=== PATIENT | female | born 1975 | race Caucasian/White ===

== ENCOUNTER → 2019-01-22 | Outpatient (CLI) | payer MEDICAID ==
--- NOTE | 2019-01-28 11:10 | WOMENS IMAGING REPORT ---
EXAM DESCRIPTION: BILAT SCREENING MAMMO W/CAD COMPLETED DATE/TIME: 01/22/2019 2:32 pm REASON FOR STUDY: Z12.31 ROUTINE BILATERAL [id number] ENCNTR SCREEN MAMMOGRAM FOR MALIGNANT NE OPLASM OF ALCON COMPARISON: 2017 outside facility. EXAM PARAMETERS: Standard craniocaudal and mediolateral oblique views of each breast recorded using digital acquisition. Read with the assistance of CAD. .[facility] - [employer] Version 9.2 LIMITATIONS: None. FINDINGS: RIGHT BREAST MASSES: No suspicious masses. CALCIFICATIONS: No new or suspicious calcifications. ARCHITECTURAL DISTORTION: None. DEVELOPING DENSITY: Developing density upper outer quadrant about 10 cm deep to the nipple. ASYMMETRY: None noted. OTHER: No other significant findings. LEFT BREAST MASSES: No suspicious masses. CALCIFICATIONS: No new or suspicious calcifications. ARCHITECTURAL DISTORTION: None. DEVELOPING DENSITY: None. ASYMMETRY: None noted. OTHER: No other significant findings. IMPRESSION: Developing density right breast. 0 Incomplete: Needs Additional Imaging Evaluation and/or prior Mammograms for Comparison. BREAST DENSITY: b. There are scattered areas of fibroglandular density. BIRAD: ASSESSMENT: 0 Incomplete: Needs Additional Imaging Evaluation and/or prior Mammograms for C omparison. RECOMMENDATION: RECOMMENDED FOLLOW-UP: True lateral cone compression views and potential ultrasound right breast. The patient will be contacted for additional imaging. COMMENT: The patient has been notified of the results by letter per MQSA requirements. Additional no tification policies are in place for contacting patient with suspicious or incomplete findings. Quality ID #225: The [employer] recommends an annual screening mammogram for women aged 40 years or over. This facility utilizes a reminder system to ensure that all patients receive reminder letters, and/or direct phone calls for appointments. This includes reminders for routine scr eening mammograms, diagnostic mammograms, or other Breast Imaging Interventions when appropriate. Th is patient will be placed in the appropriate reminder system. TECHNICAL DOCUMENTATION: FINDING NUMBER: (1) ASSESSMENT: (1) JOB ID: [id number]- All Rights Reserved Reading location - IP/workstation name: [email or web address]
== END ==
LOC: WI 14:17
PROVIDERS: ATTEND Nurse Practitioner Family
DX: Z12.31 Encounter for screening mammogram for malignant neoplasm of breast (principal)
CPT/HCPCS: 77067

== ENCOUNTER 2019-02-14 07:50 | Day surgery (SDC) | payer MEDICAID ==
[2019-02-14] MEDS ORDERED: PROPOFOL INJ 200 MG/20 ML VIAL IV ONE (07:51)
--- NOTE | 2019-02-14 11:33 | Operative Report ---
Operative Report DATE OF SURGERY: 02/14/19 Operative Report: The risks, benefits and alternatives of the procedure including the risk of bleeding, perforation requiring surgery have been explained to the patient in detail and informed consent has been obtained. Patient is taken back to the endoscopy suite and placed in a left, lateral decubital position. Timeout was called. Propofol medication is administered. Rectal examination is done which did not reveal any masses, tears or fissures. An Olympus videoscope was introduced into the patient's rectum. The scope was then carefully advanced all the way to the cecum. The cecum was identified by the usual anatomical landmarks including the ileocecal valve as well as the appendiceal office. Photodocumentation is obtained. Scope was then sequentially pulled back via the various segments of the colon including the ascending colon, hepatic flexure, transverse colon, splenic flexure, descending colon and finally into the rectosigmoid portions of the colon. Retroflexion maneuvers performed. PREOPERATIVE DIAGNOSIS: Colorectal cancer screening POSTOPERATIVE DIAGNOSIS: Mild inflammation noted on the right and side of the colon status post biopsy. Internal hemorrhoids OPERATION: Colonoscopy biopsy SURGEON: SHENA HEAD ANESTHESIA: LMAC TISSUE REMOVED OR ALTERED: As noted above. COMPLICATIONS: None. ESTIMATED BLOOD LOSS: None. INTRAOPERATIVE FINDINGS: As noted above. PROCEDURE: Patient tolerated the procedure well. No immediate postprocedure complications are noted. Patient is discharged in good condition. Discharge date 02/14/2019. Discharge diet: Regular. Discharge activity: Regular. 2 to 3-week follow-up to discuss findings. Patient is instructed to call the office or proceed to the emergency room should there be any further problems or questions. Likely can have a 10-year surveillance colonoscopy.
[2019-02-14 12:51] VITALS: BP 140/79
== END 2019-02-14 09:50 | disposition home or self-care (01) ==
LOC: END 07:50
PROVIDERS: ATTEND Internal Medicine Gastroenterology
DX: Z80.0 Family history of malignant neoplasm of digestive organs (principal); K52.9 Noninfective gastroenteritis and colitis, unspecified; K64.8 Other hemorrhoids; F17.210 Nicotine dependence, cigarettes, uncomplicated
CPT/HCPCS: 88305 ×2; 00811; J2704; 45380; 811

== ENCOUNTER 2019-06-06 06:53 | Day surgery (SDC) | payer MEDICAID ==
[2019-06-03 10:00] LABS: MEAN CORPUSCULAR HEMOGLOBIN 29.1 pg (27.0-33.4); MEAN CORPUSCULAR HGB CONC 33.3 g/dL (32.0-36.0); MEAN CORPUSCULAR VOLUME 88 fl (80-97); PLATELET COUNT 358 10^3/uL (150-450); RED BLOOD COUNT 3.43 10^6/uL (3.72-5.28); RED CELL DISTRIBUTION WIDTH 15.5 % (11.5-14.0); WHITE BLOOD COUNT 8.6 10^3/uL (4.0-10.5)
[2019-06-03 10:15] LABS: APPEARANCE,URINE SLIGHTLY-CLOUDY; BILIRUBIN,URINE NEGATIVE (NEGATIVE); COLOR,URINE YELLOW; GLUCOSE, URINE NEGATIVE (NEGATIVE); KETONES,URINE NEGATIVE (NEGATIVE); LEUKOCYTE ESTERASE,URINE NEGATIVE (NEGATIVE); NITRITE,URINE NEGATIVE (NEGATIVE); PROTEIN,URINE 30 mg/dL (NEGATIVE); URINE SPECIFIC GRAVITY 1.024; UROBILINOGEN,URINE NEGATIVE mg/dL (<2.0)
[~2019-06-06 06:53] MED LIST: LACTATED RINGERS 1000 ML IV PRN
[2019-06-06] MEDS ORDERED: ALBUTEROL SULFATE 0.083% NEB 2.5 MG/3 ML AMPUL NEB ONE (08:04)
[2019-06-06] MEDS ORDERED: KETOROLAC TROMETHAMINE 60 MG/2 ML SDV ONE (08:25)
[2019-06-06] MEDS ORDERED: FENTANYL CITRATE INJ/PF 100 MCG/2 ML AMPUL ONE (08:25)
[2019-06-06] MEDS ORDERED: MIDAZOLAM 2 MG/2 ML INJ ONE (08:26)
[2019-06-06] MEDS ORDERED: PROPOFOL INJ 200 MG/20 ML VIAL IV ONE (08:26)
[2019-06-06] MEDS ORDERED: ONDANSETRON HCL INJ/PF 4 MG/2 ML SDV ONE (08:26)
[2019-06-06] MEDS ORDERED: DEXAMETHASONE SOD PHOSPHATE INJ 4 MG/1 ML VIAL ONE (08:26)
[2019-06-06] MEDS ORDERED: DIPHENHYDRAMINE HCL 50 MG/ML VIAL IV PRN (08:53)
[2019-06-06] MEDS ORDERED: MEPERIDINE HCL/PF INJ 25 MG/1 ML DISP.SYRIN IV PRN (08:53)
[2019-06-06] MEDS ORDERED: FENTANYL CITRATE INJ/PF 100 MCG/2 ML AMPUL IV PRN ×3 (08:53)
[2019-06-06] MEDS ORDERED: MORPHINE SULFATE 10 MG/ML INJ IV PRN (08:53)
[2019-06-06] MEDS ORDERED: PROMETHAZINE HCL INJ 25 MG/1 ML VIAL IV PRN ×2 (08:53)
[2019-06-06] MEDS ORDERED: KETOROLAC TROMETHAMINE INJ/PF 30 MG/1 ML SDV IV PRN (09:05)
[2019-06-06] MEDS ORDERED: IBUPROFEN 800 MG TABLET PO PRN (09:05)
[2019-06-06] MEDS ORDERED: RINGERS SOLUTION,LACTATED 1,000 ML IV PRN (09:05)
[2019-06-06] MEDS ORDERED: OXYCODONE-ACETAMINOPHEN 5-325 MG TABLET PO PRN ×2 (09:05)
--- NOTE | 2019-06-06 09:10 | Operative Report ---
Operative Report DATE OF SURGERY: 06/06/19 PREOPERATIVE DIAGNOSIS: Uterine fibroids, menorrhagia POSTOPERATIVE DIAGNOSIS: Same OPERATION: Hysteroscopy D&C SURGEON: RISSA PEREZ ANESTHESIA: LMAC TISSUE REMOVED OR ALTERED: Cervical and uterine curettings COMPLICATIONS: None ESTIMATED BLOOD LOSS: 20 cc INTRAOPERATIVE FINDINGS: Bleeding uterine cavity PROCEDURE: Patient was taken to the OR and placed in supine position. Anesthesia was induced. She is placed in dorsolithotomy position using Yossi stirrups. Her vagina and perineum were prepared and draped. She had just voided and did not need catheterization. A weighted speculum was placed in the vagina and the anterior lip of the cervix was grasped with a tenaculum. Sounded to 10 cm before and after the case noted. Endocervical curettings were obtained. The hysteroscope was placed after gentle dilatation. It was very challenging to get a good picture with hysteroscope because of her vaginal bleeding. There is seem to be a mass in the anterior uterus however the fibroid cannot be seen in the endometrial cavity. Curettings were obtained. It does not appear that we will be able to stop her heavy menses with myomectomy via the intrauterine route. All instruments removed she is placed back in supine position and taken to recovery room in stable condition.
--- NOTE | 2019-06-06 09:13 | Discharge Summary ---
Discharge Summary (SDC) - Discharge Final Diagnosis: Fibroids and menorrhagia Date of Surgery: 06/06/19 Discharge Date: 06/06/19 Condition: Good Prescriptions: Oxycodone HCl/Acetaminophen [Percocet 5-325 mg Tablet] 1 tab PO Q4HP PRN #20 tablet PRN Reason: Referrals: RISSA PEREZ MD [Primary Care Provider] - Discharge Diet: Regular Discharge Activity: Balance Activity w/Rest Home Care Assistance: None Needed Report the Following to Your Physician Immediately: Increase in Pain, Fever over 101 Degrees
[2019-06-06 11:28] VITALS: BP 137/89
== END 2019-06-06 11:00 | disposition home or self-care (01) ==
LOC: OROUT 06:53
PROVIDERS: ATTEND Obstetrics & Gynecology
DX: N87.0 Mild cervical dysplasia (principal); N84.0 Polyp of corpus uteri; N93.8 Other specified abnormal uterine and vaginal bleeding; I10 Essential (primary) hypertension; D64.9 Anemia, unspecified; F17.210 Nicotine dependence, cigarettes, uncomplicated
CPT/HCPCS: 36415; 85027; 81025; 81001; 88305 ×2; 00952; 58558; J2250; J1100; J1885; J3010; J2405; J2704; 952

== ENCOUNTER 2019-09-04 05:30 | Inpatient (IN) | payer MEDICAID ==
[2019-08-27 10:24] LABS: HEMATOCRIT 38.7 % (36.0-47.0); HEMOGLOBIN 13.3 g/dL (12.0-15.5); MEAN CORPUSCULAR HEMOGLOBIN 31.9 pg (27.0-33.4); MEAN CORPUSCULAR HGB CONC 34.4 g/dL (32.0-36.0); MEAN CORPUSCULAR VOLUME 93 fl (80-97); PLATELET COUNT 252 10^3/uL (150-450); RED BLOOD COUNT 4.17 10^6/uL (3.72-5.28); RED CELL DISTRIBUTION WIDTH 14.9 % (11.5-14.0); WHITE BLOOD COUNT 7.9 10^3/uL (4.0-10.5)
[2019-08-27 10:33] LABS: APPEARANCE,URINE SLIGHTLY-CLOUDY; BILIRUBIN,URINE NEGATIVE (NEGATIVE); COLOR,URINE YELLOW; GLUCOSE, URINE NEGATIVE (NEGATIVE); KETONES,URINE NEGATIVE (NEGATIVE); LEUKOCYTE ESTERASE,URINE TRACE (NEGATIVE); NITRITE,URINE NEGATIVE (NEGATIVE); PROTEIN,URINE 100 mg/dL (NEGATIVE); URINE SPECIFIC GRAVITY 1.025; UROBILINOGEN,URINE NEGATIVE mg/dL (<2.0)
[2019-08-27 11:07] LABS: ALBUMIN 4.6 g/dL (3.5-5.0); ALKALINE PHOSPHATASE 64 U/L (38-126); ANION GAP 9 (5-19); ASPARTATE AMINO TRANSFERASE 22 U/L (14-36); BILIRUBIN,TOTAL 0.3 mg/dL (0.2-1.3); BLOOD UREA NITROGEN 10 mg/dL (7-20); CALCIUM 9.6 mg/dL (8.4-10.2); CARBON DIOXIDE 20 mmol/L (22-30); CHLORIDE 110 mmol/L (98-107); GLUCOSE 86 mg/dL (75-110); POTASSIUM 4.6 mmol/L (3.6-5.0); TOTAL PROTEIN 7.3 g/dL (6.3-8.2)
[~2019-09-04 05:30] MED LIST changes: +CEFAZOLIN SODIUM 2 GM in DEXTROSE 5%-WATER 100 ML IV PRN; +LIDOCAINE 0.5% INJ-PF (5 MG/ML) 50 ML SDV SUBCUT PRN
[2019-09-04] MEDS ORDERED: DEXAMETHASONE SOD PHOSPHATE INJ 4 MG/1 ML VIAL ONE (06:47)
[2019-09-04] MEDS ORDERED: MIDAZOLAM 2 MG/2 ML INJ ONE (06:47)
[2019-09-04] MEDS ORDERED: LIDOCAINE 2% INJ-PF (20 MG/ML) 10 ML AMPUL ONE (06:47)
[2019-09-04] MEDS ORDERED: ONDANSETRON HCL INJ/PF 4 MG/2 ML SDV ONE (06:47)
[2019-09-04] MEDS ORDERED: FENTANYL CITRATE INJ/PF 100 MCG/2 ML AMPUL ONE (06:47)
[2019-09-04] MEDS ORDERED: PROPOFOL INJ 200 MG/20 ML VIAL IV ONE ×2 (06:48→08:44)
[2019-09-04] MEDS ORDERED: HYDROMORPHONE HCL INJ/PF 2 MG/ML AMPULE ONE (07:17)
[2019-09-04] MEDS ORDERED: DEXMEDETOMIDINE INJ 80 MCG/20 ML VIAL IV ONE (07:17)
[2019-09-04] MEDS ORDERED: MEPERIDINE HCL/PF INJ 25 MG/1 ML DISP.SYRIN IV PRN (08:19)
[2019-09-04] MEDS ORDERED: FENTANYL CITRATE INJ/PF 100 MCG/2 ML AMPUL IV PRN ×3 (08:19)
[2019-09-04] MEDS ORDERED: DIPHENHYDRAMINE HCL 50 MG/ML VIAL IV PRN (08:19)
[2019-09-04] MEDS ORDERED: MORPHINE SULFATE 10 MG/ML INJ IV PRN (08:19)
[2019-09-04] MEDS ORDERED: PROMETHAZINE HCL INJ 25 MG/1 ML VIAL IV PRN ×3 (08:19→09:48)
[2019-09-04] MEDS ORDERED: OXYCODONE-ACETAMINOPHEN 5-325 MG TABLET PO PRN ×4 (08:19→09:48)
[2019-09-04] MEDS ORDERED: ACETAMINOPHEN 325 MG TABLET PO PRN (09:48)
[2019-09-04] MEDS ORDERED: RINGERS SOLUTION,LACTATED 1,000 ML IV PRN (09:48)
[2019-09-04] MEDS ORDERED: HYDROMORPHONE HCL INJ/PF 2 MG/ML AMPULE IV PRN (09:48)
[2019-09-04] MEDS ORDERED: ACETAMINOPHEN 1,000 MG/100 ML RTUPB IV PRN (09:48)
[2019-09-04] MEDS ORDERED: SIMETHICONE 80 MG TAB.CHEW PO PRN (09:48)
--- NOTE | 2019-09-04 09:58 | Operative Report ---
Operative Report DATE OF SURGERY: 09/04/19 PREOPERATIVE DIAGNOSIS: Fibroid uterus, pelvic pain, mild dysplasia POSTOPERATIVE DIAGNOSIS: Same OPERATION: Total abdominal hysterectomy and bilateral salpingectomy SURGEON: RISSA PEREZ ANESTHESIA: GA TISSUE REMOVED OR ALTERED: Uterus and fallopian tubes COMPLICATIONS: None ESTIMATED BLOOD LOSS: 125 cc INTRAOPERATIVE FINDINGS: Fibroid uterus PROCEDURE: Patient was taken the OR and placed in supine position. General anesthesia was induced. Her vagina perineum and abdomen were prepared and draped in sterile fashion a Rivera was placed for drainage of the bladder. A low transverse incision was made excising her old scars. Her old scars were from previous C- sections. The incision was carried down the level of the fascia and the fascia was incised bilaterally using curved Rodrigez scissors. The fascia was off the rectus muscles using sharp and blunt dissection. The rectus muscles were in the midline. Peritoneal incision was made without incident. Peritoneal incision was extended superiorly and inferiorly taking care to not to injure the bladder. The Praful retractor was placed and the bowel contents were packed back with 3 moist lap sponges. The uterus was grasped with a Qi thyroid clamp and brought out of the incision. Next the round ligaments were clamped cut and ligated bilaterally using curved Marianne clamp and transfixation suture of 0 Vicryl. The anterior leaf of the broad ligament was incised creating a bladder flap posterior leaf the broad ligament was incised. The utero-ovarian pedicle was isolated and then clamped with curved Marianne clamp and ligated doubly with free tie of 0 Vicryl followed by transfixation suture of 0 Vicryl. The ovaries appeared normal. The fallopian tubes were removed at the end of the case by clamping across the mesosalpinx and excising the tubes and ligating the mesosalpinx with a transfixation suture of 0 Vicryl. The uterine arteries were skeletonized bilaterally. The anterior leaf of the broad ligament was taken off the anterior cervix using sharp and blunt dissection creating a bladder flap. The uterine arteries were then clamped cut and ligated bilaterally using curved Marianne clamp and transfixation suture of 0 Vicryl. The fundus of the uterus was then excised free and passed off the field so that was out of the way. Next the cervical stump was removed by clamping the cardinal ligaments with straight Marianne clamp bilaterally. The pedicles were then cut and ligated with 0 Vicryl in a transfixation technique. The vaginal angles were clamped with curved Marianne clamp. The tissues were cut and then ligated with transfixation suture of 0 Vicryl bilaterally. The cervical stump was excised free. The vaginal cuff was closed with a running suture of 0 Vicryl. Hemostasis was quite good. Pelvis was irrigated and suctioned free of fluid. The ureters were small and peristalsing bilaterally after the case. The lap sponges were removed. The Praful retractor was removed. The anterior abdominal wall peritoneum was closed with a running 2-0 chromic stitch. The subfascial tissues were inspected for bleeding and then the fascia was closed with a running 0 Vicryl in 2 segments. The wound was irrigated and suctioned free of fluid. Vesna's layer was closed with a 0 plain gut suture and skin closed with a running 4-0 undyed Vicryl stitch. Dressing was placed. She is brought out of anesthesia and taken recovery room in stable condition.
[2019-09-04] MEDS: PRENATAL VITAMIN W DHA CAPSULE PO SCH (11:02)
[2019-09-04] MEDS: DOCUSATE SODIUM 100 MG CAPSULE PO SCH ×2 (11:02→19:55)
[2019-09-04] MEDS ORDERED: KETOROLAC TROMETHAMINE 60 MG/2 ML SDV ONE (14:42)
[2019-09-04] MEDS ORDERED: PHENYLEPHRINE HCL INJ/PF 10 MG/1 ML SDV ONE (14:42)
[2019-09-04] MEDS ORDERED: NEOSTIGMINE METHYLSULFATE 10 MG/10 ML VIAL ONE (14:42)
[2019-09-04] MEDS ORDERED: GLYCOPYRROLATE 1 MG/5 ML VIAL ONE (14:42)
[2019-09-04 15:36] LABS: HEMATOCRIT 36.3 % (36.0-47.0); HEMOGLOBIN 12.2 g/dL (12.0-15.5); MEAN CORPUSCULAR HGB CONC 33.6 g/dL (32.0-36.0); MEAN CORPUSCULAR VOLUME 92 fl (80-97); PLATELET COUNT 285 10^3/uL (150-450); RED BLOOD COUNT 3.93 10^6/uL (3.72-5.28); RED CELL DISTRIBUTION WIDTH 14.1 % (11.5-14.0); WHITE BLOOD COUNT 19.6 10^3/uL (4.0-10.5)
[2019-09-04 15:59] LABS: ANION GAP 12 (5-19); BLOOD UREA NITROGEN 6 mg/dL (7-20); CALCIUM 9.6 mg/dL (8.4-10.2); CARBON DIOXIDE 21 mmol/L (22-30); CHLORIDE 100 mmol/L (98-107); GLUCOSE 127 mg/dL (75-110); POTASSIUM 4.4 mmol/L (3.6-5.0)
[2019-09-04 16:04] LABS: ABSOLUTE LYMPHOCYTES# (MANUAL) 0.4 10^3/uL (0.5-4.7); ABSOLUTE MONOCYTES # (MANUAL) 0.4 10^3/uL (0.1-1.4); ANISOCYTOSIS SLIGHT; BAND NEUTROPHILS % (MANUAL) 1 % (3-5); BASOPHILS % (MANUAL) 0 % (0-2); EOSINOPHILS % (MANUAL) 0 % (0-6); LYMPHOCYTES % (MANUAL) 2 % (13-45); MONOCYTES % (MANUAL) 2 % (3-13); SEGMENTED NEUTROPHILS % (MAN) 95 % (42-78); STOMATOCYTES SLIGHT; TOTAL CELLS COUNTED 100
[2019-09-04 16:05] LABS: PLATELET COMMENT ADEQUATE
[2019-09-04] MEDS: KETOROLAC TROMETHAMINE INJ/PF 30 MG/1 ML SDV IV SCH (19:50)
[2019-09-04] MEDS ORDERED: ONDANSETRON 4 MG TAB.RAPDIS ONE (22:56)
[2019-09-05] MEDS: KETOROLAC TROMETHAMINE INJ/PF 30 MG/1 ML SDV IV SCH ×2 (03:12→09:46)
[2019-09-05 06:34] LABS: HEMATOCRIT 32.8 % (36.0-47.0); HEMOGLOBIN 11.1 g/dL (12.0-15.5); MEAN CORPUSCULAR HEMOGLOBIN 31.1 pg (27.0-33.4); MEAN CORPUSCULAR VOLUME 92 fl (80-97); PLATELET COUNT 276 10^3/uL (150-450); RED BLOOD COUNT 3.58 10^6/uL (3.72-5.28); RED CELL DISTRIBUTION WIDTH 14.3 % (11.5-14.0)
--- NOTE | 2019-09-05 08:04 | PDOC PROGRESS REPORT ---
Subjective Progress Note for:: 09/05/19 Subjective:: Doing well today. Reason For Visit: N87.0 MILD CERVICAL DYSPLASIA Physical Exam - Physical Exam Vital Signs: Temp Pulse Resp BP Pulse Ox 99.5 F 80 20 155/88 H 100 09/05/19 03:14 09/05/19 03:14 09/05/19 03:14 09/05/19 03:14 09/05/19 03:14 Intake & Output 09/04/19 09/05/19 09/06/19 06:59 06:59 06:59 Intake Total 0 1870 Output Total 2050 800 Balance 0 -180 -800 Weight 80 kg General appearance: PRESENT: no acute distress, well-developed, well-nourished GI/Abdominal exam: PRESENT: normal bowel sounds, soft, other - dressing dry. ABSENT: distended, guarding, mass, organolmegaly, rebound, tenderness Extremities exam: PRESENT: full ROM. ABSENT: calf tenderness, clubbing, pedal edema Result Laboratory Results: 09/05/19 06:19 09/04/19 15:07 09/04/19 09/04/19 09/05/19 15:07 15:07 06:19 WBC 19.6 H 14.0 H RBC 3.93 3.58 L Hgb 12.2 11.1 L Hct 36.3 32.8 L MCV 92 92 MCH 31.0 31.1 MCHC 33.6 34.0 RDW 14.1 H 14.3 H Plt Count 285 276 Seg Neutrophils % Not Reportable Sodium 133.0 L Potassium 4.4 Chloride 100 Carbon Dioxide 21 L Anion Gap 12 BUN 6 L Creatinine 0.40 L Est GFR ( Amer) > 60 Glucose 127 H Calcium 9.6 Assessment & Plan - Time Time Spent with patient: 15-24 minutes - Plan Summary Plan Summary: Continue care with planned discharge tomorrow.
[2019-09-05] MEDS ORDERED: ONDANSETRON 4 MG TAB.RAPDIS PO PRN (08:11)
[2019-09-05] MEDS: DOCUSATE SODIUM 100 MG CAPSULE PO SCH (09:46)
[2019-09-05] MEDS: PRENATAL VITAMIN W DHA CAPSULE PO SCH (09:56)
[2019-09-05] MEDS ORDERED: IBUPROFEN 800 MG TABLET PO SCH (12:00)
--- NOTE | 2019-09-05 16:52 | PDOC DISCHARGE SUMMARY ---
Impression - Admit/DC Date/PCP Admission Date/Primary Care Provider: 09/04/19 05:30 SUGEY CHEEK, WENDY-C Discharge Date: 09/05/19 - Discharge Diagnosis (1) S/P hysterectomy Is this a current diagnosis for this admission?: Yes (2) Fibroids, intramural Is this a current diagnosis for this admission?: Yes - Assessment Summary: She underwent an abdominal hysterectomy yesterday. Today she is doing well, ambulation and tolerating a regular diet. She would like to go home on oral pain meds. She has a followup appt next week. - Additional Information Resuscitation Status: Full Code Discharge Diet: As Tolerated Discharge Activity: Balance Activity w/Rest, Pelvic Rest, Slowly Increase Activity Referrals: RISSA MUNOZ MD [ACTIVE STAFF] - 09/10/19 10:00 am (Please keep your follow up appointment with Dr Munoz on 09/10/19 at 10:00. If you have any questions please call the offdice directly at .) Home Medications: Ibuprofen [Ibu] 800 mg PO DAILY PRN 08/26/19 Additional Information: Precautions given. Followup next week. Rx sent to her pharmacy. History of Present Illiness History of Present Illness: BOOKER BARNETT is a 44 year old female Physical Exam - Physical Exam Vital Signs: Temp Pulse Resp BP Pulse Ox 97.8 F 95 12 119/74 99 09/05/19 11:17 09/05/19 11:17 09/05/19 11:17 09/05/19 11:17 09/05/19 11:17 Intake & Output 09/04/19 09/05/19 09/06/19 06:59 06:59 06:59 Intake Total 0 1870 1000 Output Total 2050 800 Balance 0 -180 200 Weight 80 kg Results Laboratory Results: WBC 14.0 10^3/uL (4.0-10.5) H 09/05/19 06:19 RBC 3.58 10^6/uL (3.72-5.28) L 09/05/19 06:19 Hgb 11.1 g/dL (12.0-15.5) L 09/05/19 06:19 Hct 32.8 % (36.0-47.0) L 09/05/19 06:19 MCV 92 fl (80-97) 09/05/19 06:19 MCH 31.1 pg (27.0-33.4) 09/05/19 06:19 MCHC 34.0 g/dL (32.0-36.0) 09/05/19 06:19 RDW 14.3 % (11.5-14.0) H 09/05/19 06:19 Plt Count 276 10^3/uL (150-450) 09/05/19 06:19 Lymph % (Auto) Not Reportable 09/04/19 15:07 [place] % (Auto) Not Reportable 09/04/19 15:07 Eos % (Auto) Not Reportable 09/04/19 15:07 Baso % (Auto) Not Reportable 09/04/19 15:07 Absolute Neuts (auto) Not Reportable 09/04/19 15:07 Absolute Lymphs (auto) Not Reportable 09/04/19 15:07 Absolute Monos (auto) Not Reportable 09/04/19 15:07 Absolute Eos (auto) Not Reportable 09/04/19 15:07 Absolute Basos (auto) Not Reportable 09/04/19 15:07 Total Counted 100 09/04/19 15:07 Seg Neutrophils % Not Reportable 09/04/19 15:07 Seg Neuts % (Manual) 95 % (42-78) H 09/04/19 15:07 Band Neutrophils % 1 % (3-5) L 09/04/19 15:07 Lymphocytes % (Manual) 2 % (13-45) L 09/04/19 15:07 Monocytes % (Manual) 2 % (3-13) L 09/04/19 15:07 Eosinophils % (Manual) 0 % (0-6) 09/04/19 15:07 Basophils % (Manual) 0 % (0-2) 09/04/19 15:07 Abs Neuts (Manual) 18.8 10^3/uL (1.7-8.2) H 09/04/19 15:07 Abs Lymphs (Manual) 0.4 10^3/uL (0.5-4.7) L 09/04/19 15:07 Abs Monocytes (Manual) 0.4 10^3/uL (0.1-1.4) 09/04/19 15:07 Absolute Eos (Manual) 0.0 10^3/uL (0.0-0.6) 09/04/19 15:07 Abs Basophils (Manual) 0.0 10^3/uL (0.0-0.2) 09/04/19 15:07 Platelet Comment ADEQUATE 09/04/19 15:07 Anisocytosis SLIGHT 09/04/19 15:07 Stomatocytes SLIGHT 09/04/19 15:07 Sodium 133.0 mmol/L (137-145) L 09/04/19 15:07 Potassium 4.4 mmol/L (3.6-5.0) 09/04/19 15:07 Chloride 100 mmol/L (98-107) 09/04/19 15:07 Carbon Dioxide 21 mmol/L (22-30) L 09/04/19 15:07 Anion Gap 12 (5-19) 09/04/19 15:07 BUN 6 mg/dL (7-20) L 09/04/19 15:07 Creatinine 0.40 mg/dL (0.52-1.25) L 09/04/19 15:07 Est GFR ( Amer) > 60 (>60) 09/04/19 15:07 Est GFR (MDRD) Non-Af > 60 (>60) 09/04/19 15:07 Glucose 127 mg/dL (75-110) H 09/04/19 15:07 Calcium 9.6 mg/dL (8.4-10.2) 09/04/19 15:07 Total Bilirubin 0.3 mg/dL (0.2-1.3) 08/27/19 09:55 Direct Bilirubin 0.0 mg/dL (0.0-0.4) 08/27/19 09:55 Neonat Total Bilirubin Not Reportable 08/27/19 09:55 Neonat Direct Bilirubin Not Reportable 08/27/19 09:55 Neonat Indirect Bili Not Reportable 08/27/19 09:55 AST 22 U/L (14-36) 08/27/19 09:55 ALT 14 U/L (<35) 08/27/19 09:55 Alkaline Phosphatase 64 U/L (38-126) 08/27/19 09:55 Total Protein 7.3 g/dL (6.3-8.2) 08/27/19 09:55 Albumin 4.6 g/dL (3.5-5.0) 08/27/19 09:55 Urine Color YELLOW 08/27/19 09:55 Urine Appearance SLIGHTLY-CLOUDY 08/27/19 09:55 Urine pH 5.0 (5.0-9.0) 08/27/19 09:55 Ur Specific [place] 1.025 08/27/19 09:55 Urine Protein 100 mg/dL (NEGATIVE) H 08/27/19 09:55 Urine Glucose (UA) NEGATIVE mg/dL (NEGATIVE) 08/27/19 09:55 Urine Ketones NEGATIVE mg/dL (NEGATIVE) 08/27/19 09:55 Urine Blood LARGE (NEGATIVE) H 08/27/19 09:55 Urine Nitrite NEGATIVE (NEGATIVE) 08/27/19 09:55 Urine Bilirubin NEGATIVE (NEGATIVE) 08/27/19 09:55 Urine Urobilinogen NEGATIVE mg/dL (<2.0) 08/27/19 09:55 Ur Leukocyte Esterase TRACE (NEGATIVE) H 08/27/19 09:55 Urine WBC (Auto) 29 /HPF 08/27/19 09:55 Urine RBC (Auto) >182 /HPF 08/27/19 09:55 Squamous Epi Cells Auto 1 /HPF 08/27/19 09:55 Urine Mucus (Auto) RARE /LPF 08/27/19 09:55 Urine Ascorbic Acid NEGATIVE (NEGATIVE) 08/27/19 09:55 Urine HCG, Qual NEGATIVE (NEGATIVE) 09/04/19 05:50 Blood Type O POSITIVE 08/27/19 09:55 Antibody Screen NEGATIVE 08/27/19 09:55 Stroke Is this a Stroke Patient?: No Acute Heart Failure - Is this a Heart Failure Patient?: No
[2019-09-05 17:43] VITALS: BP 159/92
== END 2019-09-05 18:05 | disposition home or self-care (01) | DRG 743 ==
LOC: INOR 05:30 → 2S 10:50
PROVIDERS: ADMIT Obstetrics & Gynecology; ATTEND Obstetrics & Gynecology
PROC: 0UT70ZZ Resection of Bilateral Fallopian Tubes, Open Approach (ICD-10-PCS; 2019-09-04)
PROC: 0UT90ZZ Resection of Uterus, Open Approach (ICD-10-PCS; principal; 2019-09-04 07:30)
DX: D25.1 Intramural leiomyoma of uterus (principal); N87.0 Mild cervical dysplasia; D64.9 Anemia, unspecified; I10 Essential (primary) hypertension; F17.210 Nicotine dependence, cigarettes, uncomplicated; Z98.891 History of uterine scar from previous surgery
CPT/HCPCS: 36415; 80048; 80053; 81001; 81025; 85025; 85027; 86850; 86900; 86901; 88307; 94799; J0690; J1100; J1170; J1885; J2250; J2370; J2405; J2550; J2704; J2710; J3010; J3490; J7060; J7120; S0119

== ENCOUNTER → 2020-01-29 | Outpatient (CLI) | payer MEDICAID ==
--- NOTE | 2020-01-29 14:45 | WOMENS IMAGING REPORT ---
EXAM DESCRIPTION: 3D SCREENING MAMMO BILAT IMAGES COMPLETED DATE/TIME: 01/29/2020 1:50 pm REASON FOR STUDY: Z12.31 ENCOUNTER FOR SCREENING MAMMOGRAM FOR MALIGNANT NEOPLASM OF BREAST Z12.31 ENCNTR SCREEN MAMMOGRAM FOR MALIGNANT NEOPLASM OF ALCON COMPARISON: 01/22/2019. EXAM PARAMETERS: Views: Standard craniocaudal and mediolateral oblique views of each breast recorded using digital acquisition and breast tomosynthesis. Read with the assistance of CAD. .[facility]END[facility] - [employer] Version 9.2 LIMITATIONS: None. FINDINGS: No suspicious masses, suspicious calcifications or architectural distortion. No areas of c oncern. IMPRESSION: NEGATIVE MAMMOGRAM. BIRADS 1. BREAST DENSITY: c. The breasts are heterogeneously dense, which may obscure small masses. BIRAD: ASSESSMENT: 1 NEGATIVE RECOMMENDATION: ROUTINE SCREENING COMMENT: The patient has been notified of the results by letter per MQSA requirements. Additional no tification policies are in place for contacting patient with suspicious or incomplete findings. Quality ID #[id number]: The [employer] recommends an annual screening mammogram for women aged 40 years or over. This facility utilizes a reminder system to ensure that all patients receive reminder letters, and/or direct phone calls for appointments. This includes reminders for routine scr eening mammograms, diagnostic mammograms, or other Breast Imaging Interventions when appropriate. Th is patient will be placed in the appropriate reminder system. TECHNICAL DOCUMENTATION: FINDING NUMBER: (1) ASSESSMENT: (1) JOB ID: [id number] 2010 [employer]- All Rights Reserved Reading location - IP/workstation name: [email or web address]
== END ==
LOC: WI 13:24
PROVIDERS: ATTEND Obstetrics & Gynecology
DX: Z12.31 Encounter for screening mammogram for malignant neoplasm of breast (principal)
CPT/HCPCS: 77063; 77067

== ENCOUNTER 2020-03-15 17:31 | Emergency (ER) | payer MEDICAID ==
[2020-03-15] MEDS ORDERED: ONDANSETRON HCL INJ/PF 4 MG/2 ML SDV IV ONE ×2 (18:37→23:30)
--- NOTE | 2020-03-15 18:40 | ER Document Report ---
ED Medical Screen (RME) - General Chief Complaint: Flank Pain Stated Complaint: FLANK PAIN Time Seen by Provider: 03/15/20 18:34 Primary Care Provider: SUGEY CHEEK FNP-C [Primary Care Provider] - Follow up as needed Notes: Patient presents complaint of left flank pain that started today. Patient states pain is been constant although varies in intensity. Patient reports nausea with vomiting x2 episodes. No diarrhea. Patient denies any fever. Patient denies any urinary symptoms. I have greeted and performed a rapid initial assessment of this patient. A comprehensive ED assessment and evaluation of the patient, analysis of test results and completion of the medical decision making process will be conducted by additional ED providers. TRAVEL OUTSIDE OF THE [place] IN LAST 30 DAYS: No - Related Data Allergies/Adverse Reactions: No Known Allergies Allergy (Verified 03/15/20 18:31) Past Medical History - Social History Frequency of alcohol use: Social Drug Abuse: None - Past Medical History Cardiac Medical History: Reports: Hx Hypercholesterolemia, Hx Hypertension Denies: Hx Atrial Fibrillation, Hx Congestive Heart Failure, Hx Coronary Artery Disease, Hx Heart Attack, Hx Peripheral Vascular Disease, Hx Heart Murmur Pulmonary Medical History: Denies: Hx Asthma, Hx Bronchitis, Hx COPD, Hx Pneumonia Neurological Medical History: Denies: Hx Cerebrovascular Accident, Hx Seizures Renal/ Medical History: Denies: Hx Ovarian Cysts, Hx Pelvic Inflammatory Disease Malignancy Medical History: Denies: Hx Breast Cancer, Hx Cervical Cancer, Hx Ovarian Cancer Musculoskeltal Medical History: Denies Hx Arthritis - Immunizations Hx Diphtheria, Pertussis, Tetanus Vaccination: Yes Physical Exam - Vital signs Vitals: Temp Pulse Resp BP Pulse Ox 99.3 F 101 H 18 139/93 H 100 03/15/20 17:37 03/15/20 17:37 03/15/20 17:37 03/15/20 17:37 03/15/20 17:37 - Back Back: CVA tenderness - Left Course - Vital Signs Vital signs: Temp Pulse Resp BP Pulse Ox 99.3 F 101 H 18 139/93 H 100 03/15/20 17:37 03/15/20 17:37 03/15/20 17:37 03/15/20 17:37 03/15/20 17:37 Doctor's Discharge - Discharge Referrals: SUGEY CHEEK FNP-C [Primary Care Provider] - Follow up as needed
[2020-03-15 19:13] LABS: ABSOLUTE BASOPHILS # (AUTO) 0.1 10^3/uL (0.0-0.2); ABSOLUTE EOSINOPHILS # (AUTO) 0.1 10^3/uL (0.0-0.6); ABSOLUTE MONOCYTES (AUTO) 0.3 10^3/uL (0.1-1.4); ABSOLUTE NEUT (AUTO) 7.4 10^3/uL (1.7-8.2); BASOPHILS % (AUTO) 0.7 % (0-2); EOSINOPHILS % (AUTO) 0.9 % (0-6); HEMATOCRIT 41.5 % (36.0-47.0); HEMOGLOBIN 14.2 g/dL (12.0-15.5); LYMPHOCYTES % (AUTO) 20.1 % (13-45); MEAN CORPUSCULAR HGB CONC 34.2 g/dL (32.0-36.0); MEAN CORPUSCULAR VOLUME 94 fl (80-97); MONOCYTES % (AUTO) 3.2 % (3-13); PLATELET COUNT 250 10^3/uL (150-450); RED BLOOD COUNT 4.43 10^6/uL (3.72-5.28); RED CELL DISTRIBUTION WIDTH 13.3 % (11.5-14.0); SEGMENTED NEUTROPHILS % (AUTO) 75.1 % (42-78); TOTAL CELLS COUNTED % (AUTO) 100 %; WHITE BLOOD COUNT 9.9 10^3/uL (4.0-10.5)
[2020-03-15 19:20] LABS: APPEARANCE,URINE SLIGHTLY-CLOUDY; BILIRUBIN,URINE NEGATIVE (NEGATIVE); COLOR,URINE YELLOW; GLUCOSE, URINE NEGATIVE (NEGATIVE); KETONES,URINE TRACE mg/dL (NEGATIVE); LEUKOCYTE ESTERASE,URINE TRACE (NEGATIVE); NITRITE,URINE NEGATIVE (NEGATIVE); PROTEIN,URINE 30 mg/dL (NEGATIVE); URINE SPECIFIC GRAVITY 1.033
[2020-03-15 19:37] LABS: ALBUMIN 4.8 g/dL (3.5-5.0); ALKALINE PHOSPHATASE 70 U/L (38-126); ANION GAP 8 (5-19); ASPARTATE AMINO TRANSFERASE 20 U/L (14-36); BILIRUBIN,DIRECT 0.3 mg/dL (0.0-0.4); BILIRUBIN,TOTAL 0.5 mg/dL (0.2-1.3); BLOOD UREA NITROGEN 11 mg/dL (7-20); CALCIUM 9.8 mg/dL (8.4-10.2); CARBON DIOXIDE 26 mmol/L (22-30); CHLORIDE 107 mmol/L (98-107); GLUCOSE 109 mg/dL (75-110); TOTAL PROTEIN 7.5 g/dL (6.3-8.2)
[2020-03-15 22:16] VITALS: BP 152/96
[2020-03-15] MEDS ORDERED: KETOROLAC TROMETHAMINE INJ/PF 30 MG/1 ML SDV IV ONE (23:39)
--- NOTE | 2020-03-16 01:40 | RADIOLOGY REPORT (SQ) ---
EXAM DESCRIPTION: CT scan of the abdomen and pelvis without contrast. CLINICAL HISTORY: 44 years Female; left flank pain TECHNIQUE: CT of the abdomen and pelvis without intravenous contrast.. Oral contrastWas not used. All CT scans at this facility use dose modulation, iterative reconstruction, and/or weight based dosing when appropriate to reduce radiation dose to as low as reasonably achievable. This exam was performed according to our department optimization program which includes automated exposure control, adjustment of the mA and/or kv according to patient size and/or use of iterative reconstruction technique. COMPARISON: None. FINDINGS: Lower chest:The lung bases are clear. The visualized portion of heart and great vessels are normal. Abdomen: Liver and biliary tree: The unenhanced liver and gallbladder are unremarkable. Pancreas: Normal Spleen:Within normal limits Kidneys: Kidneys are normal in size, shape and position. No stones. No mass or hydronephrosis. Adrenal glands:Within normal limits Vascular structures:Within normal limits Retroperitoneum: No mass or lymphadenopathy Abdominal wall: Small umbilical hernia containing omentum. GI:Bowel is of normal caliber. No focal bowel wall thickening. No obstruction. Appendix: The appendix appears normal. General: No free air. No free fluid Pelvis: Lymph nodes: No mass or lymphadenopathy Bladder: The bladder is mostly empty. Pelvis: Uterus is not clearly seen. No adnexal mass. Bones: No acute bone findings. IMPRESSION: No acute process in the abdomen or pelvis. No renal or ureteral stones. No evidence of appendicitis.
[2020-03-16] MEDS ORDERED: PHENAZOPYRIDINE HCL 200 MG TABLET PO ONE (02:20)
--- NOTE | 2020-03-16 02:20 | ER Document Report ---
ED GI/ - General Chief Complaint: Flank Pain Stated Complaint: FLANK PAIN Time Seen by Provider: 03/15/20 18:34 Primary Care Provider: SUGEY CHEEK FNP-C [Primary Care Provider] - Follow up as needed Mode of Arrival: Ambulatory Information source: Patient Notes: Patient is a 44-year-old female comes emergency room with left-sided pain. Patient states it started about a week ago and got significantly worse today. She rates her pain as a 4 out of 5. She calls it crampy and it comes and goes in intensity increases. Patient has no history of kidney stones. Has no other medical problems. Patient's past family medical history pertinent for daughter dying at 22 years of age with sarcoma. Patient has had a recent partial hysterectomy. This was done approximately 6 to 8 months ago. TRAVEL OUTSIDE OF THE [place] IN LAST 30 DAYS: No - HPI Patient complains to provider of: Abdominal pain, Flank pain Onset: This afternoon Timing/Duration: Sudden, Persistent, Worse Quality of pain: Achy, Cramping, Sharp Severity at maximum: Moderate Severity in ED: Moderate Pain Level: 4 Context: denies: Lifting Location: LLQ, Left flank Vaginal bleeding (Compared to normal period): None, Similar Menstrual period history: Abnormal LMP: Hysterectomy - Related Data Allergies/Adverse Reactions: No Known Allergies Allergy (Verified 03/15/20 18:31) Past Medical History - General Information source: Patient - Social History Smoking Status: Current Every Day Smoker Cigarette use (# per day): Yes Chew tobacco use (# tins/day): Yes Smoking Education Provided: Yes Frequency of alcohol use: Social Drug Abuse: None Lives with: Family Family History: Reviewed & Not Pertinent - Past Medical History Cardiac Medical History: Reports: Hx Hypercholesterolemia, Hx Hypertension Denies: Hx Atrial Fibrillation, Hx Congestive Heart Failure, Hx Coronary Artery Disease, Hx Heart Attack, Hx Peripheral Vascular Disease, Hx Heart Murmur Pulmonary Medical History: Denies: Hx Asthma, Hx Bronchitis, Hx COPD, Hx Pneumonia Neurological Medical History: Denies: Hx Cerebrovascular Accident, Hx Seizures Renal/ Medical History: Denies: Hx Ovarian Cysts, Hx Pelvic Inflammatory Disease Malignancy Medical History: Denies: Hx Breast Cancer, Hx Cervical Cancer, Hx Ovarian Cancer Musculoskeletal Medical History: Denies Hx Arthritis - Immunizations Hx Diphtheria, Pertussis, Tetanus Vaccination: Yes Review of Systems - Review of Systems Constitutional: No symptoms reported EENT: No symptoms reported Cardiovascular: No symptoms reported Respiratory: No symptoms reported Gastrointestinal: See HPI, Abdominal pain Genitourinary: No symptoms reported Female Genitourinary: No symptoms reported Musculoskeletal: No symptoms reported Skin: No symptoms reported Hematologic/Lymphatic: No symptoms reported Neurological/Psychological: No symptoms reported Physical Exam - Vital signs Vitals: Temp Pulse Resp BP Pulse Ox 99.3 F 101 H 18 139/93 H 100 03/15/20 17:37 03/15/20 17:37 03/15/20 17:37 03/15/20 17:37 03/15/20 17:37 Interpretation: Hypertensive, Tachycardic - Notes Notes: PHYSICAL EXAMINATION: GENERAL: Patient is a well-nourished well-developed 44-year-old female who is in no apparent distress on physical exam tonight. She is on the opposite side because she has been waiting so long. She does appear somewhat uncomfortable. HEAD: Atraumatic, normocephalic. EYES: Pupils equal round and reactive to light, extraocular movements intact, conjunctiva are normal. ENT: Nares patent, oropharynx clear without exudates. Moist mucous membranes. NECK: Normal range of motion, supple without lymphadenopathy LUNGS: Breath sounds clear to auscultation bilaterally and equal. No wheezes rales or rhonchi. HEART: Tacky rate and rhythm without murmurs ABDOMEN: Examination patient's abdomen shows she has bowel sounds present 4 quads. She is moderately tender in the left lower quadrant and left lower flank area. She has no tenderness to suprapubic palpation. She has no sign of rash. Female : deferred Musculoskeletal: Normal range of motion, no pitting or edema. No cyanosis. NEUROLOGICAL: . Normal speech, normal gait. Normal sensory, motor exams PSYCH: Normal mood, normal affect. SKIN: Warm, Dry, normal turgor, no rashes or lesions noted. Course - Re-evaluation Re-evalutation: 03/16/20 02:[address] was negative for any acute findings. There was no ureterolithiasis presentation. She did have a small amount of blood in her urine given that she has had no discharge and is had a hysterectomy I feel that probably she is got going on with a urethritis/ureteral spasm she does have good follow-up with Dr. Tam Munoz and a nurse practitioner locally. She will contact them for follow-up within the next couple days. 03/16/20 02:25 To make a note patient did get 100% relief of her discomfort and pain with Toradol. - Vital Signs Vital signs: Temp Pulse Resp BP Pulse Ox 98.5 F 90 18 152/96 H 100 03/15/20 22:06 03/15/20 22:06 03/15/20 17:37 03/15/20 22:06 03/15/20 22:06 - Laboratory Result Diagrams: 03/15/20 18:54 03/15/20 18:54 Laboratory results interpreted by me: 03/15/20 18:54 Urine Protein 30 H Urine Ketones TRACE H Urine Blood SMALL H Urine Urobilinogen 2.0 H Ur Leukocyte Esterase TRACE H Discharge - Discharge Clinical Impression: Ureteral colic, Urethritis Condition: Stable Disposition: HOME, SELF-CARE Instructions: Abdominal Pain ([facility]), Antispasmodics ([facility]), Toradol Injection ([facility]) Additional Instructions: Home and rest. Medications prescribed. As we discussed contact Dr. Tam zapien and/or your other primary care provider for follow-up sometime within the next week or so. We are attempting to treat the symptoms which have going on but do not forget that the Pyridium will turn your urine bright orange. Should you have any concerns or problems you can return to ER for reevaluation. Prescriptions: Ketorolac Tromethamine [Toradol 10 mg Tablet] 10 mg PO Q6HP PRN #24 tablet PRN Reason: Cephalexin Monohydrate [Keflex 500 mg Capsule] 500 mg PO BID 5 Days #10 capsule Phenazopyridine HCl [Pyridium 200 mg Tablet] 200 mg PO TID #15 tablet Forms: Elevated Blood Pressure, Smoking Cessation Education, Return to Work Referrals: SUGEY CHEEK FNP-C [Primary Care Provider] - Follow up as needed
== END 2020-03-16 02:50 | disposition home or self-care (01) ==
LOC: ER 17:31
DX: N23 Unspecified renal colic (principal); N34.2 Other urethritis; R10.9 Unspecified abdominal pain; R10.32 Left lower quadrant pain; F17.210 Nicotine dependence, cigarettes, uncomplicated; I10 Essential (primary) hypertension
CPT/HCPCS: 99285; 96374; 96375; 36415; 85025; 80053; 81001; 74176; J1885; J3490; J2405

== ENCOUNTER → 2020-03-19 | Outpatient (CLI) | payer MEDICAID ==
[2020-03-19 17:07] LABS: APPEARANCE,URINE SLIGHTLY-CLOUDY; BILIRUBIN,URINE NEGATIVE (NEGATIVE); COLOR,URINE AMBER; GLUCOSE, URINE NEGATIVE (NEGATIVE); KETONES,URINE NEGATIVE (NEGATIVE); LEUKOCYTE ESTERASE,URINE NEGATIVE (NEGATIVE); NITRITE,URINE POSITIVE (NEGATIVE); PROTEIN,URINE 100 mg/dL (NEGATIVE)
== END ==
LOC: OD 15:46
PROVIDERS: ATTEND Nurse Practitioner Family
DX: R10.9 Unspecified abdominal pain (principal); R30.0 Dysuria
CPT/HCPCS: 81001; 87086